=== PATIENT | female | born 1970 | race Two or more races ===

== ENCOUNTER 2021-10-31 11:38 | Emergency (ER) | payer MEDICAID ==
[~2021-10-31] VITALS: Ht 154.9 cm; Wt 69.4 kg
[2021-10-31 11:49] VITALS: BP 134/86
[2021-10-31] MEDS ORDERED: VALA500T PO ×2 (12:07→12:37)
[2021-10-31] MEDS ORDERED: DEXT15DR6 EACHEYE ×2 (12:07→12:37)
[2021-10-31] MEDS ORDERED: PRED50TA PO ×2 (12:07→12:37)
--- NOTE | 2021-10-31 12:44 | NUR ---
Patient discharged to home with family in stable condition. Written and verbal after care instructions given. Patient verbalizes understanding of instruction.
== END 2021-10-31 12:44 | disposition home or self-care (01) ==
LOC: ER 11:43
DX: G51.0 Bell's palsy (principal); I10 Essential (primary) hypertension; E11.9 Type 2 diabetes mellitus without complications; Z79.899 Other long term (current) drug therapy
CPT/HCPCS: 82962-TC